=== PATIENT | female | born 1995 | race Caucasian/White ===

== ENCOUNTER 2017-10-25 21:38 | Outpatient (CLI) | payer OTHER ==
[~2017-10-25] VITALS: Ht 160 cm; Wt 76.8 kg
[~2017-10-25 21:38] MED LIST: PRENATAL MVI PO; PRILOSEC 20MG20 MG PO; UNISOM25 MG PO; ZOLOFT 25MG25 MG PO
[2017-10-25 22:00] VITALS: BP 103/68; PULSE 79; TEMP 98.6
[2017-10-25] MEDS ORDERED: ZOLOFT 100MG100 MG PO (22:03)
[2017-10-25 22:45] VITALS: BP 89/53; PULSE 75
[2017-10-25 23:00] VITALS: BP 111/69; PULSE 75
== END 2017-10-25 23:30 | disposition home or self-care (01) ==
LOC: LDRO 21:38
DX: O62.9 Abnormality of forces of labor, unspecified (principal); Z3A.36 36 weeks gestation of pregnancy

== ENCOUNTER 2017-10-27 17:02 | Inpatient (IN) | payer OTHER ==
[2017-10-27] VITALS (16 sets, daily range): BP systolic 101–135; BP diastolic 55–74; PULSE 71–95; TEMP 97.6–97.9
[~2017-10-27] VITALS: Ht 160 cm; Wt 76.4 kg
[~2017-10-27 17:02] MED LIST changes: +ZOLOFT 100MG100 MG PO
[2017-10-27] MEDS ORDERED: NATURAL IRON65 MG (19:31)
[2017-10-27 19:48] LABS: BASO # 0.1 (0.0-0.2); BASO % 0.6 % (0.0-2.0); EOS # 0.2 (0.0-0.7); EOS % 1.3 % (0-4.0); GRAN # 10.5 (1.4-6.5); GRAN % 66.8 % (42.2-75.2); HEMATOCRIT 32.5 % (35.0-45.0); LYMPH % 18.8 % (20.0-51.0); MEAN CELL VOLUME 77 fl (80.0-95.0); MEAN CORPUSCULAR HEMOGLOBIN 24 pg (26.0-32.0); MEAN CORPUSCULAR HGB CONC 31 g/dl (33.0-37.0); MEAN PLATELET VOLUME 9.3 fl (7.4-10.4); MONO # 1.2 (0.1-0.6); MONO % 7.6 % (1.7-9.3); PLATELET COUNT 288 K/mm3 (130-400); REDCELL DISTRIBUTION WIDTH-CV 20.5 % (11.5-14.5)
[2017-10-28] VITALS (18 sets, daily range): BP systolic 94–128; BP diastolic 44–77; PULSE 71–113; TEMP 97.7–99.3
[2017-10-28 05:23] LABS: MEAN CELL VOLUME 78 fl (80.0-95.0); MEAN CORPUSCULAR HGB CONC 31 g/dl (33.0-37.0); MEAN PLATELET VOLUME 9.2 fl (7.4-10.4); PLATELET COUNT 231 K/mm3 (130-400); RED BLOOD COUNT 3.06 M/mm3 (4.10-5.30); REDCELL DISTRIBUTION WIDTH-CV 20.3 % (11.5-14.5)
[2017-10-28 05:36] LABS: HEMATOCRIT 23.8 % (35.0-45.0); HEMOGLOBIN 7.3 g/dl (12.0-15.0); MEAN CORPUSCULAR HEMOGLOBIN 24 pg (26.0-32.0)
[2017-10-28 06:24] LABS: BAND 40 % (0-10); HYPOCHROMIA 2+; LYMPHOCYTE 9 % (20.0-51.0); NEUTROPHILS 48 % (42.0-75.2)
[2017-10-28 06:25] LABS: ANISOCYTOSIS 2+; MICROCYTOSIS 2+; OVALOCYTES 1+; PLATELET ESTIMATE NORMAL (NORMAL)
[2017-10-28] MEDS ORDERED: PERCOCET 325 MG1 TA2 PO (10:28)
[2017-10-28] MEDS ORDERED: IBU800 M1 PO (10:28)
[2017-10-29 06:58] VITALS: BP 114/64; PULSE 76; TEMP 98.1
[2017-10-29 15:05] VITALS: BP 114/68; PULSE 78; TEMP 98.1
[2017-10-29 20:45] VITALS: BP 114/57; PULSE 101; TEMP 97.8
[2017-10-30 08:10] VITALS: BP 88/56; PULSE 96; TEMP 98.2
== END 2017-10-30 11:00 | disposition home or self-care (01) | DRG 767 ==
LOC: OB 17:02 → LDR 18:35 → OB 10-28 05:00
PROVIDERS: Student in an Organized Health Care Education/Training Program
PROC: 10D17Z9 Manual Extraction of Products of Conception, Retained, Via Natural or Artificial Opening (ICD-10-PCS; principal; 2017-10-28)
PROC: 10E0XZZ Delivery of Products of Conception, External Approach (ICD-10-PCS; 2017-10-28)
PROC: 0KQM0ZZ Repair Perineum Muscle, Open Approach (ICD-10-PCS; 2017-10-28)
DX: O42.013 Preterm premature rupture of membranes, onset of labor within 24 hours of rupture, third trimester (principal); O72.0 Third-stage hemorrhage; O70.1 Second degree perineal laceration during delivery; O34.211 Maternal care for low transverse scar from previous cesarean delivery; O99.613 Diseases of the digestive system complicating pregnancy, third trimester; K21.9 Gastro-esophageal reflux disease without esophagitis; O99.820 Streptococcus B carrier state complicating pregnancy; F32.9 Major depressive disorder, single episode, unspecified; O99.343 Other mental disorders complicating pregnancy, third trimester; Z3A.36 36 weeks gestation of pregnancy; Z37.0 Single live birth
CPT/HCPCS: J1200; J2405; J2590; J2791; J3370; J7050; J7120